=== PATIENT | male | born 1945 | race Caucasian/White ===

== ENCOUNTER 2018-04-15 08:34 | Observation (INO) ==
[2018-04-15 09:27] LABS: Albumin 3.3 G/DL (3.4-5.0); Bilirubin,Total 1.1 MG/DL (0.2-1.0); Calcium 8.7 MG/DL (8.5-10.1); Osmolality,Calculated 277.5 MOS/KG (273-304); Total Protein 7.5 G/DL (6.4-8.3); Troponin I Only 0.021 NG/ML (0.00-0.045)
[2018-04-15 09:46] LABS: Basophils % 0.5 % (0.0-0.8); Eosinophils # 0.2 10*3/uL (0.0-0.87); Eosinophils % 2.7 % (0.00-10.9); Hematocrit 42.2 VOL% (42.0-52.0); Hemoglobin 14.5 GM/DL (14.0-18.0); Immature Granulocytes % 0.2 %; Immature Granulocytes Absolute 0.01 #; Lymphocytes # 3.1 10*3/uL (1.4-4.0); Mean Corpuscular HGB Conc 34.4 GM/DL (32-36); Mean Corpuscular Hemoglobin 35 PG (27-34); Mean Corpuscular Volume 100.7 FL (87-102); Mean Platelet Volume 10.7 FL (9.6-12.0); Monocytes # 0.4 10*3/uL (0.11-0.8); Monocytes % 6.7 % (1.7-12.7); Neutrophils # 2.8 10*3/uL (1.4-7.4); Neutrophils % 42.9 % (38.7-73.9); Platelet Count 98 T/CUMM (130-400); Red Blood Count 4.19 MC/CUMM (3.8-5.5); Red Cell Distribution Width 12.4 % (9.3-17.3); White Blood Count 6.6 T/CUMM (4-12)
[2018-04-15] MEDS ORDERED: ACETAMINOPHEN 325 MG TABLET PO PRN (10:14)
[2018-04-15] MEDS ORDERED: ASPIRIN 325 MG TABLET PO STA (10:14)
[2018-04-15] MEDS ORDERED: ONDANSETRON 4 MG/2 ML VIAL IV PRN (10:14)
[2018-04-15] MEDS ORDERED: ENOXAPARIN 30 MG/0.3 ML SYRINGE SUBCUT STA (10:16)
[2018-04-15] MEDS ORDERED: NITROGLYCERIN SL 0.4 MG TABLET SL PRN (10:17)
[2018-04-15] MEDS ORDERED: ENOXAPARIN 100 MG/ML SYRINGE SUBCUT ONE (10:48)
[2018-04-15 14:11] LABS: Troponin I Only 0.022 NG/ML (0.00-0.045)
[2018-04-15 16:34] LABS: Troponin I Only 0.025 NG/ML (0.00-0.045)
[2018-04-15 18:46] LABS: Troponin I Only 0.024 NG/ML (0.00-0.045)
[2018-04-15] MEDS: DOCUSATE SODIUM 100 MG CAPSULE PO SCH (21:16)
[2018-04-16 04:43] LABS: Basophils % 0.3 % (0.0-0.8); Eosinophils # 0.2 10*3/uL (0.0-0.87); Eosinophils % 3.4 % (0.00-10.9); Hematocrit 40.7 VOL% (42.0-52.0); Immature Granulocytes % 0.1 %; Immature Granulocytes Absolute 0.01 #; Lymphocytes # 3.3 10*3/uL (1.4-4.0); Lymphocytes % 47.7 % (21.2-54.2); Mean Corpuscular HGB Conc 34.4 GM/DL (32-36); Mean Corpuscular Hemoglobin 34 PG (27-34); Mean Corpuscular Volume 98.8 FL (87-102); Mean Platelet Volume 12.7 FL (9.6-12.0); Monocytes # 0.5 10*3/uL (0.11-0.8); Monocytes % 7.1 % (1.7-12.7); Neutrophils # 2.8 10*3/uL (1.4-7.4); Neutrophils % 41.4 % (38.7-73.9); Red Blood Count 4.12 MC/CUMM (3.8-5.5); Red Cell Distribution Width 12.3 % (9.3-17.3); White Blood Count 6.9 T/CUMM (4-12)
[2018-04-16 05:08] LABS: Platelet Count 66 T/CUMM (130-400)
[2018-04-16 05:19] LABS: Platelet Estimate Decreased
[2018-04-16 05:23] LABS: Free T4 (Free Thyroxine) 1.24 NG/DL (0.76-1.46); Thyroid Stimulating Hormone 1.31 uIU/ml (0.358-3.74)
[2018-04-16 05:32] LABS: Calcium 8.7 MG/DL (8.5-10.1); Potassium 4.8 MMOL/L (3.5-5.1); Risk Ratio 1.94; VLDL CHOLESTEROL 24.4 MG/DL
[2018-04-16] MEDS: DOCUSATE SODIUM 100 MG CAPSULE PO SCH (08:33)
[2018-04-16] MEDS ORDERED: ASPIRIN EC 81 MG TABLET PO SCH (09:00)
[2018-04-16] MEDS ORDERED: PANTOPRAZOLE 40 MG TABLET PO SCH (09:00)
[2018-04-16] MEDS ORDERED: SERTRALINE 25 MG TABLET PO ONE (10:17)
[2018-04-16 15:51] VITALS: BP 141/76
[2018-04-16] MEDS ORDERED: SERTRALINE 25 MG TABLET PO SCH (21:00)
== END 2018-04-16 19:48 | disposition home or self-care (01) ==
LOC: N.EDINP 08:34 → N.ED 08:34 → N.2W 10:52 → N.TELES 13:21
PROVIDERS: ADMIT Family Medicine; ATTEND Family Medicine

== ENCOUNTER 2020-04-28 11:37 | Observation (INO) ==
[2020-04-28] MEDS ORDERED: HYDROmorphone 2 MG/1 ML VIAL IV STA (12:23)
[2020-04-28] MEDS ORDERED: ONDANSETRON 4 MG/2 ML VIAL IV STA (12:23)
[2020-04-28 12:43] LABS: INR 1.1; PT Patient Result 11.8 SECS (9.8-11.9); Partial Thromboplastin Time 28.2 SECS (23.9-33.8)
[2020-04-28 12:47] LABS: Basophils % 0.2 % (0.0-0.8); Eosinophils # 0.1 10*3/uL (0.0-0.87); Eosinophils % 2.2 % (0.00-10.9); Hematocrit 39.5 VOL% (42.0-52.0); Hemoglobin 13.6 GM/DL (14.0-18.0); Immature Granulocytes % 0.5 %; Immature Granulocytes Absolute 0.02 #; Lymphocytes # 0.8 10*3/uL (1.4-4.0); Mean Corpuscular HGB Conc 34.4 GM/DL (32-36); Mean Corpuscular Volume 100.5 FL (87-102); Mean Platelet Volume 12.1 FL (9.6-12.0); Monocytes % 5.6 % (1.7-12.7); Neutrophils % 72.5 % (38.7-73.9); Platelet Count 65 T/CUMM (130-400); Red Blood Count 3.93 MC/CUMM (3.8-5.5); Red Cell Distribution Width 12.1 % (9.3-17.3); White Blood Count 4.1 T/CUMM (4-12)
[2020-04-28 12:48] LABS: Calcium 8.4 MG/DL (8.5-10.1); Osmolality,Calculated 283.3 MOS/KG (273-304)
[2020-04-28 13:36] LABS: Hypochromasia 1+; Macrocytosis 1+; Platelet Estimate Adequate
[2020-04-28] MEDS ORDERED: ZALEPLON 5 MG CAPSULE PO PRN (15:14)
[2020-04-28] MEDS ORDERED: MAGNESIUM SULF RIDER 4 GM in PREMIX 1 EACH IV PRN (15:14)
[2020-04-28] MEDS ORDERED: POTASSIUM CHLORIDE 20 MEQ TABLET PO PRN (15:14)
[2020-04-28] MEDS ORDERED: MAGNESIUM SULF RIDER 2 GM in PREMIX 1 EACH IV PRN (15:14)
[2020-04-28] MEDS ORDERED: MORPHINE 4 MG/1 ML VIAL IV PRN (15:14)
[2020-04-28] MEDS: ENOXAPARIN 40 MG/0.4 ML SYRINGE SUBCUT SCH (17:54)
[2020-04-28] MEDS ORDERED: NITROGLYCERIN SL 0.4 MG TABLET SL PRN (18:19)
[2020-04-28] MEDS: SODIUM CHLORIDE 0.45% 1,000 ML IV SCH ×2 (18:20→23:53)
[2020-04-28] MEDS ORDERED: ACETAMINOPHEN 500 MG TABLET PO PRN (19:51)
[2020-04-28] MEDS ORDERED: LEVOFLOXACIN 500 MG TABLET PO ONE (19:52)
[2020-04-28] MEDS ORDERED: HYDROmorphone 2 MG/1 ML VIAL IV PRN (19:58)
[2020-04-29] MEDS: SODIUM CHLORIDE 0.45% 1,000 ML IV SCH ×2 (02:52→09:09)
[2020-04-29 06:52] LABS: Basophils % 0.3 % (0.0-0.8); Eosinophils # 0.1 10*3/uL (0.0-0.87); Eosinophils % 3.8 % (0.00-10.9); Hematocrit 35.3 VOL% (42.0-52.0); Hemoglobin 12.3 GM/DL (14.0-18.0); Immature Granulocytes % 0.3 %; Immature Granulocytes Absolute 0.01 #; Lymphocytes # 1.2 10*3/uL (1.4-4.0); Lymphocytes % 33.6 % (21.2-54.2); Mean Corpuscular HGB Conc 34.8 GM/DL (32-36); Mean Corpuscular Volume 98.9 FL (87-102); Mean Platelet Volume 11.2 FL (9.6-12.0); Monocytes % 8.5 % (1.7-12.7); Neutrophils % 53.5 % (38.7-73.9); Platelet Count 58 T/CUMM (130-400); Red Blood Count 3.57 MC/CUMM (3.8-5.5); Red Cell Distribution Width 12.1 % (9.3-17.3); White Blood Count 3.7 T/CUMM (4-12)
[2020-04-29 07:20] LABS: Hypochromasia 1+; Platelet Estimate Decreased
[2020-04-29 07:21] LABS: Macrocytosis Slight
[2020-04-29 07:25] LABS: Calcium 7.7 MG/DL (8.5-10.1); Osmolality,Calculated 273.7 MOS/KG (273-304); Risk Ratio 1.86; VLDL CHOLESTEROL 15.8 MG/DL
[2020-04-29] MEDS: ASPIRIN 325 MG TABLET PO SCH (09:09)
[2020-04-29] MEDS: ENOXAPARIN 40 MG/0.4 ML SYRINGE SUBCUT SCH (17:05)
[2020-04-30] MEDS: ASPIRIN 325 MG TABLET PO SCH (09:35)
[2020-04-30 10:08] VITALS: BP 127/63
== END 2020-04-30 10:34 | disposition home or self-care (01) ==
LOC: EDUNIT# → EDBD → N.EDINP 11:37 → N.ED 11:37 → N.TELEN 18:05
PROVIDERS: ADMIT Family Medicine; ATTEND Family Medicine

== ENCOUNTER 2020-06-20 20:45 | Observation (INO) ==
[2020-06-20] MEDS ORDERED: KETOROLAC 30 MG/1 ML VIAL IV STA (21:27)
[2020-06-20] MEDS ORDERED: ONDANSETRON 4 MG/2 ML VIAL IV STA (21:27)
[2020-06-20] MEDS ORDERED: HYDROmorphone 2 MG/1 ML VIAL IV STA (21:27)
[2020-06-20] MEDS ORDERED: SODIUM CHLORIDE 0.9% 500 ML IV STA (21:27)
[2020-06-20 22:14] LABS: Basophils % 0.4 % (0.0-0.8); Eosinophils # 0.2 10*3/uL (0.0-0.87); Eosinophils % 2.6 % (0.00-10.9); Hematocrit 36.2 VOL% (42.0-52.0); Hemoglobin 12.3 GM/DL (14.0-18.0); Immature Granulocytes % 0.2 %; Immature Granulocytes Absolute 0.01 #; Lymphocytes % 34.9 % (21.2-54.2); Mean Platelet Volume 11.8 FL (9.6-12.0); Monocytes % 8.2 % (1.7-12.7); Neutrophils % 53.7 % (38.7-73.9); Red Blood Count 3.55 MC/CUMM (3.8-5.5); Red Cell Distribution Width 12.8 % (9.3-17.3); White Blood Count 5.7 T/CUMM (4-12)
[2020-06-20 22:21] LABS: Platelet Count 68 T/CUMM (130-400)
[2020-06-20 22:29] LABS: Albumin 2.8 G/DL (3.4-5.0); Bilirubin,Total 1.2 MG/DL (0.2-1.0); Calcium 8.1 MG/DL (8.5-10.1); Osmolality,Calculated 280.4 MOS/KG (273-304); Total Protein 6.4 G/DL (6.4-8.3)
[2020-06-20 23:10] LABS: Troponin I 0.029 NG/ML (0.00-0.045)
[2020-06-20 23:28] LABS: Bilirubin,Urine Negative (Negative); Blood, Urine Large mg/dL (Negative); Glucose,Urine (UA) Negative (Negative); Ketones,Urine Negative (Negative); Mucus,Urine Occasional /LPF (Occasional); Nitrite,Urine Negative (Negative); Protein,Urine Negative; RBC,Urine 70 /HPF (0-4); Squamous Epithelial Cell,Urine Occasional /HPF (0-10); Urine Appearance CLEAR (Clear); Urine Color Yellow (Yellow); Urine Specific Gravity 1.012 (1.001-1.035); Urine Urobilinogen < 2.0 EU/DL (0.2-1.0); WBC,Urine 4 /HPF (0-6)
[2020-06-21] MEDS ORDERED: ACETAMINOPHEN 325 MG TABLET PO PRN (02:56)
[2020-06-21] MEDS ORDERED: HYDROmorphone 2 MG/1 ML VIAL IV PRN (02:56)
[2020-06-21] MEDS ORDERED: ONDANSETRON 4 MG/2 ML VIAL IV PRN (02:56)
[2020-06-21] MEDS: SODIUM CHLORIDE 0.9% 1,000 ML IV SCH (03:29)
[2020-06-21 06:25] LABS: Basophils % 0.4 % (0.0-0.8); Eosinophils # 0.2 10*3/uL (0.0-0.87); Eosinophils % 3.3 % (0.00-10.9); Hematocrit 34.6 VOL% (42.0-52.0); Hemoglobin 11.6 GM/DL (14.0-18.0); Immature Granulocytes % 0.4 %; Immature Granulocytes Absolute 0.02 #; Lymphocytes % 44.2 % (21.2-54.2); Mean Corpuscular HGB Conc 33.5 GM/DL (32-36); Mean Platelet Volume 10.7 FL (9.6-12.0); Monocytes % 7.7 % (1.7-12.7); Red Blood Count 3.36 MC/CUMM (3.8-5.5); Red Cell Distribution Width 12.7 % (9.3-17.3); White Blood Count 4.6 T/CUMM (4-12)
[2020-06-21 06:26] LABS: Platelet Count 61 T/CUMM (130-400)
[2020-06-21 06:39] LABS: Albumin 2.6 G/DL (3.4-5.0); Bilirubin,Total 1.9 MG/DL (0.2-1.0); Calcium 7.9 MG/DL (8.5-10.1); Osmolality,Calculated 280.3 MOS/KG (273-304); Total Protein 5.9 G/DL (6.4-8.3)
[2020-06-21 06:53] LABS: Platelet Estimate Decreased
[2020-06-21] MEDS: PANTOPRAZOLE 40 MG TABLET PO SCH (09:29)
[2020-06-21] MEDS: DOCUSATE SODIUM 100 MG CAPSULE PO SCH (09:29)
[2020-06-22] MEDS: DOCUSATE SODIUM 100 MG CAPSULE PO SCH ×2 (06:10→08:59)
[2020-06-22] MEDS: SODIUM CHLORIDE 0.9% 1,000 ML IV SCH (07:33)
[2020-06-22] MEDS ORDERED: oxyCODONE/ACETAMINOPHEN 5-325 MG TABLET PO PRN (08:21)
[2020-06-22] MEDS ORDERED: ONDANSETRON 4 MG TABLET PO PRN (08:21)
[2020-06-22] MEDS ORDERED: HYDROmorphone 2 MG TABLET PO PRN (08:21)
[2020-06-22] MEDS ORDERED: ONDANSETRON ODT 4 MG TABLET PO PRN (08:21)
[2020-06-22] MEDS ORDERED: PROMETHAZINE 25 MG TABLET PO PRN (08:21)
[2020-06-22] MEDS: TAMSULOSIN 0.4 MG CAPSULE PO SCH (08:59)
[2020-06-22] MEDS: ASPIRIN 325 MG TABLET PO SCH (08:59)
[2020-06-22] MEDS: PANTOPRAZOLE 40 MG TABLET PO SCH (08:59)
[2020-06-22] MEDS ORDERED: fentaNYL 12 MCG/HR PATCH TRANSDERM SCH (09:00)
[2020-06-22] MEDS ORDERED: INFLUENZA VIRUS VACCINE 0.5 ML SYRINGE IM ONE (13:53)
[2020-06-23] MEDS: DOCUSATE SODIUM 100 MG CAPSULE PO SCH ×2 (00:38→08:36)
[2020-06-23 04:08] LABS: Basophils % 0.4 % (0.0-0.8); Eosinophils # 0.2 10*3/uL (0.0-0.87); Eosinophils % 3.8 % (0.00-10.9); Hematocrit 35.9 VOL% (42.0-52.0); Hemoglobin 12.3 GM/DL (14.0-18.0); Immature Granulocytes % 0.2 %; Immature Granulocytes Absolute 0.01 #; Lymphocytes # 2.1 10*3/uL (1.4-4.0); Lymphocytes % 43.3 % (21.2-54.2); Mean Corpuscular HGB Conc 34.3 GM/DL (32-36); Mean Corpuscular Volume 102.6 FL (87-102); Mean Platelet Volume 12.2 FL (9.6-12.0); Neutrophils % 44.3 % (38.7-73.9); Platelet Count 53 T/CUMM (130-400); Red Cell Distribution Width 12.5 % (9.3-17.3); White Blood Count 4.8 T/CUMM (4-12)
[2020-06-23 05:13] LABS: Hypochromasia 1+; Macrocytosis Slight; Platelet Estimate Decreased
[2020-06-23] MEDS: ASPIRIN 325 MG TABLET PO SCH ×2 (08:36→08:37)
[2020-06-23] MEDS: PANTOPRAZOLE 40 MG TABLET PO SCH (08:36)
[2020-06-23] MEDS: TAMSULOSIN 0.4 MG CAPSULE PO SCH (08:36)
[2020-06-23 09:03] VITALS: BP 138/75
== END 2020-06-23 10:10 | disposition home or self-care (01) ==
LOC: EDUNIT# → EDBD → N.EDINP 20:45 → N.ED 20:45 → N.4E 06-21 02:05
PROVIDERS: ADMIT Family Medicine; ATTEND Family Medicine

== ENCOUNTER 2021-12-27 08:04 | Observation (INO) ==
[2021-12-27 09:41] LABS: Basophils % 0.3 % (0.0-0.8); Eosinophils # 0.2 10*3/uL (0.0-0.87); Eosinophils % 3.7 % (0.00-10.9); Hematocrit 38.3 VOL% (42.0-52.0); Hemoglobin 12.9 GM/DL (14.0-18.0); Immature Granulocytes % 0.2 %; Immature Granulocytes Absolute 0.01 #; Lymphocytes # 2.6 10*3/uL (1.4-4.0); Lymphocytes % 43.6 % (21.2-54.2); Mean Corpuscular HGB Conc 33.7 GM/DL (32-36); Mean Corpuscular Volume 107.9 FL (87-102); Mean Platelet Volume 11.8 FL (9.6-12.0); Monocytes # 0.4 10*3/uL (0.11-0.8); Monocytes % 5.8 % (1.7-12.7); Neutrophils % 46.4 % (38.7-73.9); Platelet Count 67 T/CUMM (130-400); Red Blood Count 3.55 MC/CUMM (3.8-5.5); Red Cell Distribution Width 12.5 % (9.3-17.3)
[2021-12-27 09:49] LABS: Albumin 2.8 G/DL (3.4-5.0); Bilirubin,Total 1.4 MG/DL (0.20-1.00); Calcium 8.8 MG/DL (8.5-10.1); Osmolality,Calculated 284.1 MOS/KG (273-304); Potassium 3.7 MMOL/L (3.5-5.1); Total Protein 6.5 G/DL (6.4-8.2)
[2021-12-27 10:07] LABS: Platelet Estimate Decreased
[2021-12-27 10:29] LABS: Bilirubin,Urine Negative (Negative); Blood, Urine Trace mg/dL (Negative); Glucose,Urine (UA) Negative (Negative); Ketones,Urine Negative (Negative); Mucus,Urine Occasional /LPF (Occasional); Nitrite,Urine Negative (Negative); Protein,Urine 30 mg/dL (Negative); RBC,Urine 13 /HPF (0-4); Urine Appearance Clear (Clear); Urine Color Yellow (Yellow); Urine Specific Gravity >= 1.030 (1.001-1.035); Urine Urobilinogen 0.2 eU/dL (<2.0)
[2021-12-27] MEDS ORDERED: ACETAMINOPHEN 325 MG TABLET PO PRN (14:16)
[2021-12-27] MEDS ORDERED: ONDANSETRON 4 MG/2 ML VIAL IV PRN (14:16)
[2021-12-27] MEDS ORDERED: NITROGLYCERIN SL 0.4 MG TABLET SL PRN (16:50)
[2021-12-27] MEDS: SODIUM CHLORIDE 0.9% 1,000 ML IV SCH (18:21)
[2021-12-27] MEDS: MEGESTROL 40 MG TABLET PO SCH (22:28)
[2021-12-27] MEDS: ESCITALOPRAM 10 MG TABLET PO SCH (22:29)
[2021-12-27] MEDS: DOCUSATE SODIUM 100 MG CAPSULE PO SCH (22:29)
[2021-12-28 05:02] LABS: Basophils % 0.3 % (0.0-0.8); Eosinophils # 0.3 10*3/uL (0.0-0.87); Eosinophils % 4.3 % (0.00-10.9); Hematocrit 37.6 VOL% (42.0-52.0); Hemoglobin 12.7 GM/DL (14.0-18.0); Immature Granulocytes % 0.2 %; Immature Granulocytes Absolute 0.01 #; Lymphocytes # 2.4 10*3/uL (1.4-4.0); Lymphocytes % 37.8 % (21.2-54.2); Mean Corpuscular HGB Conc 33.8 GM/DL (32-36); Mean Corpuscular Volume 106.2 FL (87-102); Mean Platelet Volume 10.2 FL (9.6-12.0); Monocytes # 0.4 10*3/uL (0.11-0.8); Neutrophils % 50.4 % (38.7-73.9); Platelet Count 75 T/CUMM (130-400); Red Blood Count 3.54 MC/CUMM (3.8-5.5); Red Cell Distribution Width 12.3 % (9.3-17.3); White Blood Count 6.3 T/CUMM (4-12)
[2021-12-28 05:19] LABS: Calcium 8.8 MG/DL (8.5-10.1); Osmolality,Calculated 286.7 MOS/KG (273-304); Potassium 4.1 MMOL/L (3.5-5.1)
[2021-12-28 05:54] LABS: Anisocytosis Slight; Macrocytosis Slight; Platelet Estimate Decreased
[2021-12-28] MEDS: MEGESTROL 40 MG TABLET PO SCH ×2 (10:17→20:17)
[2021-12-28] MEDS: DOCUSATE SODIUM 100 MG CAPSULE PO SCH ×2 (10:17→20:18)
[2021-12-28] MEDS: predniSONE 5 MG TABLET PO SCH (10:17)
[2021-12-28] MEDS: PANTOPRAZOLE 40 MG TABLET PO SCH (10:18)
[2021-12-28] MEDS: ABIRATERONE 250 MG PO SCH (10:23)
[2021-12-28] MEDS: SODIUM CHLORIDE 0.9% 1,000 ML IV SCH ×5 (15:01→23:38)
[2021-12-28] MEDS: ASPIRIN EC 81 MG TABLET PO SCH (15:01)
[2021-12-28] MEDS: ATORVASTATIN 40 MG TABLET PO SCH (20:18)
[2021-12-28] MEDS: ESCITALOPRAM 10 MG TABLET PO SCH (20:18)
[2021-12-28] MEDS ORDERED: traZODone 50 MG TABLET PO ONE (21:17)
[2021-12-29] MEDS: SODIUM CHLORIDE 0.9% 1,000 ML IV SCH ×2 (02:31→20:50)
[2021-12-29 06:39] LABS: Basophils % 0.4 % (0.0-0.8); Eosinophils # 0.2 10*3/uL (0.0-0.87); Eosinophils % 2.3 % (0.00-10.9); Hematocrit 36.7 VOL% (42.0-52.0); Hemoglobin 12.5 GM/DL (14.0-18.0); Immature Granulocytes % 0.2 %; Immature Granulocytes Absolute 0.02 #; Lymphocytes # 3.2 10*3/uL (1.4-4.0); Lymphocytes % 38.3 % (21.2-54.2); Mean Corpuscular HGB Conc 34.1 GM/DL (32-36); Mean Corpuscular Volume 104.9 FL (87-102); Mean Platelet Volume 11.2 FL (9.6-12.0); Monocytes # 0.4 10*3/uL (0.11-0.8); Neutrophils % 53.8 % (38.7-73.9); Platelet Count 64 T/CUMM (130-400); Red Cell Distribution Width 12.2 % (9.3-17.3); White Blood Count 8.4 T/CUMM (4-12)
[2021-12-29 06:54] LABS: Calcium 8.4 MG/DL (8.5-10.1); Osmolality,Calculated 285.7 MOS/KG (273-304); Potassium 3.4 MMOL/L (3.5-5.1)
[2021-12-29] MEDS: predniSONE 5 MG TABLET PO SCH (09:35)
[2021-12-29] MEDS: DOCUSATE SODIUM 100 MG CAPSULE PO SCH ×2 (09:35→20:49)
[2021-12-29] MEDS: ASPIRIN EC 81 MG TABLET PO SCH (09:36)
[2021-12-29] MEDS: PANTOPRAZOLE 40 MG TABLET PO SCH (09:36)
[2021-12-29] MEDS: MEGESTROL 40 MG TABLET PO SCH ×2 (09:36→20:49)
[2021-12-29] MEDS: ABIRATERONE 250 MG PO SCH (09:37)
[2021-12-29] MEDS ORDERED: POTASSIUM CHLORIDE 20 MEQ TABLET PO PRN (13:16)
[2021-12-29] MEDS ORDERED: MAGNESIUM SULF RIDER 2 GM/50 ML PREMIX IV PRN (13:16)
[2021-12-29] MEDS ORDERED: MAGNESIUM SULF RIDER 4 GM/100 ML PREMIX IV PRN (13:16)
[2021-12-29] MEDS ORDERED: POTASSIUM CHLORIDE RIDER 10 MEQ/100 ML PREMIX IV PRN (13:16)
[2021-12-29] MEDS ORDERED: ZALEPLON 5 MG CAPSULE PO PRN (19:13)
[2021-12-29] MEDS: ESCITALOPRAM 10 MG TABLET PO SCH (20:49)
[2021-12-29] MEDS: ATORVASTATIN 40 MG TABLET PO SCH (20:49)
[2021-12-30] MEDS: SODIUM CHLORIDE 0.9% 1,000 ML IV SCH ×2 (01:11→05:58)
[2021-12-30 04:37] LABS: Calcium 8.1 MG/DL (8.5-10.1); Osmolality,Calculated 284.8 MOS/KG (273-304); Potassium 3.6 MMOL/L (3.5-5.1)
[2021-12-30] MEDS ORDERED: ABIRATERONE 250 MG PO SCH (06:00)
[2021-12-30] MEDS: DOCUSATE SODIUM 100 MG CAPSULE PO SCH (09:18)
[2021-12-30] MEDS: PANTOPRAZOLE 40 MG TABLET PO SCH (09:18)
[2021-12-30] MEDS: predniSONE 5 MG TABLET PO SCH (09:18)
[2021-12-30] MEDS: ASPIRIN EC 81 MG TABLET PO SCH (09:18)
[2021-12-30] MEDS: MEGESTROL 40 MG TABLET PO SCH (09:18)
[2021-12-30 12:07] VITALS: BP 133/78
== END 2021-12-30 15:25 | disposition home health service (06) ==
LOC: EDUNIT# → EDBD → N.ED 08:04 → N.EDINP 08:04 → N.3E 18:35
PROVIDERS: ADMIT Internal Medicine; ATTEND Internal Medicine